=== PATIENT | female | born 1980 | race Two or more races ===

== ENCOUNTER 2024-04-26 03:40 | Emergency (ER) | payer BC, MEDICAID, SELFPAY ==
[2024-04-26 03:40] VITALS: BMI 36.9
[2024-04-26 03:47] VITALS: BP 135/88; PULSE 60; RESP 18; TEMP 36.7; O2SAT 98
--- NOTE | 2024-04-26 04:05 | XR_ITS ---
Examination: Duplex scan of the lower extremity, unilateral left Date and time of exam: 05/27/2024 0536 hrs. Indications: Left leg pain beginning 3 days ago worse the last 2 days Technique: Duplex scan of the extremity veins using B-mode/grayscale imaging and Doppler spectral analysis and color flow Attention is directed to internal echogenicity, compression and augmentation involving these veins, color flow assessment, spectral analysis Findings: Major deep venous structures in the extremity demonstrate normal course and caliber. There is no evidence of deep vein thrombosis. Normal color flow and spectral analysis Impression: Negative for DVT..
[2024-04-26] MEDS: DIAZEPAM 5 MG TABLET PO (04:08)
[2024-04-26] MEDS: KETOROLAC INJ 60 MG/2 ML VIAL IM (04:08)
--- NOTE | 2024-04-26 05:37 | PD.EDRME ---
Rapid Medical Screening Exam [facility] Arrival date/time: 04/26/24 03:40 43F with history of DVT and chronic back pain presents to ED with 2 days of lower back pain w/o fall/trauma. Patient states she's been having back pain since last year when she picked up something heavy at work. Yesterday, she felt like she pulled a muscle and has worsening pain since then. Patient denies dysuria/hematuria, paresthesia, bowel/bladder incontinence, and fevers/chills. Patient had MRI of lower back recently that showed some disc bulging and nerve pinching. Separately, patient also noticed her LLE was swollen and painful yesterday. Patient would like US to r/o DVT. She denies URI symptoms and SOB. Patient is no longer on anticoags. Chief Complaint: Back Pain/Injury Time Seen by Provider: 04/26/24 04:00 Vital signs: Vital Signs Temperature 98.0 F 04/26/24 03:47 Pulse Rate 60 04/26/24 03:47 Respiratory Rate 18 04/26/24 03:47 Blood Pressure 135/88 H 04/26/24 03:47 Pulse Oximetry (%) 98 04/26/24 03:47 Oxygen Delivery Method Room Air 04/26/24 03:47
--- NOTE | 2024-04-26 05:48 | PC.NURSE ---
PT IN ULTRASOUND AT THIS TIME.
--- NOTE | 2024-04-26 06:26 | PRELIM_ITS ---
Left lower extremity venous Doppler ultrasound. April 26, 2024 0536 hours Clinical history: r/o DVT; history of DVT; no on blood thinners Technique: Duplex scan of the left lower extremity deep venous systems was performed utilizing 2D grayscale imaging, Doppler spectral analysis and color flow Doppler and with compression. Comparison:No prior study is available for comparison. Findings: Carlos scale, color flow and spectral Doppler evaluation of the left lower extremity deep veins was performed. The common femoral, superficial femoral and popliteal veins are patent and compressible. Normal respiratory variation is noted. There is no evidence of occlusive or nonocclusive thrombus. The great saphenous vein is patent and compressible at the level of the saphenofemoral junction. Impression: No sonographic evidence of deep venous thrombosis in the left lower extremity. Report Electronically Signed By: Kashmir Santos 04/26/2024 6:24:42 AM [EST]
[2024-04-26] MEDS: HYDROcodone/APAP 5/325 TABLET 2 TAB PO (06:55)
--- NOTE | 2024-04-26 12:30 | EDNOTE_ITS ---
ED Back Injury Pain RME/HPI General Chief Complaint: Back Pain/Injury Stated Complaint: LOWER BACK PAIN Time Seen by Provider: 04/26/24 04:00 Arrival date/time: 04/26/24 03:40 RME / HPI RME / HPI Narrative: 04/26/24 03:40 43F with history of DVT and chronic back pain presents to ED with 2 days of lower back pain w/o fall/trauma. Patient states she's been having back pain since last year when she picked up something heavy at work. Yesterday, she felt like she pulled a muscle and has worsening pain since then. Patient denies dysuria/hematuria, paresthesia, bowel/bladder incontinence, and fevers/chills. Patient had MRI of lower back recently that showed some disc bulging and nerve pinching. Separately, patient also noticed her LLE was swollen and painful yesterday. Patient would like US to r/o DVT. She denies URI symptoms and SOB. Patient is no longer on anticoags. DR. MURRAY MAIN ED EVALUATION: 43 year old female with past medical history significant for DVT and chronic back pain presents to the Emergency Department with complaint of lower back pain onset 2 days. Patient denies any fall, injury, or loss of consciousness. She does report she picked up something heavy at work and since had back pain, like she pulled a muscle. Denies dysuria, paresthesia, bowel/bladder incontinence. No fevers, chills, or other symptoms at this time. Related Data Home Medications ?Medication ?Instructions ?Recorded ?Confirmed prenat.vits,ghassan,fbd-xcyv-bpois 1 tab PO QDAY 05/04/17 05/06/19 ( Vitamin tablet) medroxyprogesterone 10 mg tablet 10 mg PO QDAY 0 05/06/19 Previous Rx's ?Medication ?Instructions ?Recorded albuterol sulfate 90 mcg/actuation 2 inh inhalation Q4 H PRN shortness 05/06/19 aerosol inhaler of breath or wheezing #8.5 g rakesh azithromycin 250 mg tablet See Rx Instructions PO .COM PLEX #6 05/06/19 (Zithromax Z-Frank) tabs hydrocodone 5 mg-acetaminophen 325 1 tab PO BID PRN pa in #15 tabs 08/01/19 mg tablet ([place]) naproxen 500 mg tablet (Naprosyn) 500 mg PO BID #30 ta bs 08/01/19 diphenoxylate-atropine 2.5 2 tab PO QID PRN diarrhea # 20 tabs 04/19/23 mg-0.025 mg tablet (Lomotil) ondansetron 4 mg disintegrating 4 mg PO Q8H PRN nausea and 04/19/23 tablet vomiting #15 tabs cyclobenzaprine 10 mg tablet 10 mg PO BID PRN muscle s pasm #14 08/18/23 tabs hydrocodone 5 mg-acetaminophen 325 1 tab PO Q8H PRN pa in #14 tabs 08/18/23 mg tablet ibuprofen 800 mg tablet 800 mg PO Q8H PRN pain #30 t abs 08/18/23 hydrocodone 5 mg-acetaminophen 325 1 tab PO Q6H PRN pa in #20 tabs 04/26/24 mg tablet Allergies Allergy/AdvReac Type Severity Reaction Status Date / Time Pork/Porcine Containing Allergy Severe HIVES Verified 04/26/24 03:45 Products Review of Systems Review of Systems Systems Reviewed: All systems reviewed, normal except as documented Narrative Review of Systems: GEN: No fever, no chills, no weight loss EYES: No discharge, no visual changes, no pain HEENT: No ear pain, no congestion, no sore throat PULM: No shortness of breath, no cough, no congestion CV: No chest pain, no dyspnea on exertion, no palpitations GI: No nausea, no vomiting, no diarrhea, no pain, no constipation : No frequency, no urgency and no dysuria MUSC/SKEL: No joint pain, + lower back pain SKIN: No rash PSYCH: No hallucinations, no depression HEME/LYMPH: No easy bleeding or bruising tendencies NEURO: No weakness, no headache Past Medical History Past Medical History CARDIAC: Positive Cardiac Disorders, Cardiac Arrhythmia, Heart Murmur and Deep Vein Thrombosis REPRODUCTIVE: Positive Previous Pregnancies HEMATOLOGIC: Positive Clotting Problems Family History FAMILY HISTORY: Positive Family Cardiac Disorders Surgical History SURGICAL: Positive Cardiac Catheterization, Abdominal Surgery and Section Social History SMOKING STATUS: Never smoker SECOND HAND EXPOSURE: No SUBSTANCE USE: does not use ALCOHOL: Never ED Exam Narrative Physical exam: GENERAL APPEARANCE: alert and oriented x 4, well-developed, well-nourished, no acute distress VITALS: All vitals were reviewed and the pulse ox is 98% on room air, which is normal according to my interpretation. HEENT: Normocephalic, atraumatic; pupils equal, round, reactive to light; EOMI; mucous membranes pink, moist; oropharynx clear NECK: Supple LUNGS: CTABL; no wheezes, no rales, no rhonchi HEART: Regular rate, regular rhythm; normal S1, S2; no murmurs ABDOMEN: non distended; normal BS; soft, no tenderness, no guarding, no rebound; no masses, no organomegaly, no hernia BACK: no CVA tenderness EXTREMITIES: atraumatic; no edema NEUROLOGIC: awake; alert and oriented x4; cranial nerves II-XII grossly intact; no focal sensory or motor deficits PSYCHIATRIC: appropriate mood and affect SKIN: warm, dry, normal color; no rashes Course Quality Measures none Orders Category Date Time Status US venous doppler LE LT Stat Exams 04/26/24 04:05 Completed Diazepam [Valium] Med 04/26/24 04:00 Discontinued 5 mg PO X1 ONE HYDROcodone*/APAP 5/325 [Denton 5/325] Med 04/26/24 06:49 Discontinued 2 tab PO X1 ONE Ketorolac Inj [Toradol Inj] Med 04/26/24 04:00 Discontinued 60 mg IM X1 ONE Vital Signs Vital signs: Vital Signs Temperature 98.0 F 04/26/24 03:47 Pulse Rate 60 04/26/24 03:47 Respiratory Rate 18 04/26/24 03:47 Blood Pressure 135/88 H 04/26/24 03:47 Pulse Oximetry (%) 98 04/26/24 03:47 Oxygen Delivery Method Room Air 04/26/24 03:47 Back Pain / Injury MDM Narrative MDM Narrative:: IVerito am scribing for and in the presence of Dr. Murray. Patient data External records reviewed:: [facility] previous records (Reviewed last ED visit dated 08/18/23, discharged with the following: Strain of lumbar region) Clinical information provided by:: patient Social determinants that could affect healthcare access:: none Patient has the following chronic illnesses:: DVT and chronic back pain How is presenting disease/condition affected by chronic disease/condition?: exacerbated by Evaluation data The following diagnostics were reviewed and interpreted by me:: radiology exam(s) Lab and/or radiology exams considered but not ordered:: none Interpretation Summary: Procedure(s): US venous doppler LE LT Accession Number(s): [id number] cc: Jose Henao PA-C; Eyad Pelayo MD; Oscar Fofnaa PA-C~ Examination: Duplex scan of the lower extremity, unilateral left Date and time of exam: 05/27/2024 0536 hrs. Indications: Left leg pain beginning 3 days ago worse the last 2 days Technique: Duplex scan of the extremity veins using B-mode/grayscale imaging and Doppler spectral analysis and color flow Attention is directed to internal echogenicity, compression and augmentation involving these veins, color flow assessment, spectral analysis Findings: Major deep venous structures in the extremity demonstrate normal course and caliber. There is no evidence of deep vein thrombosis. Normal color flow and spectral analysis Impression: Negative for DVT.. Dictated By: Eyad Pelayo MD Medications / Prescriptions Medications or Prescriptions considered but not ordered:: none Medication administrations:: Medication Administration History Discontinued Medications Hydrocodone Bitart/Acetaminophen (Hydrocodone/Apap 5/325 Tablet) 2 tab PO X1 ONE Stop: 04/26/24 06:50 Last Admin: 04/26/24 06:55 Dose: 2 tab Documented By: CVL Diazepam (Diazepam 5 Mg Tablet) 5 mg PO X1 ONE Stop: 04/26/24 04:01 Last Admin: 04/26/24 04:08 Dose: 5 mg Documented By: CB Ketorolac Tromethamine (Ketorolac Inj 60 Mg/2 Ml Vial) 60 mg IM X1 ONE Stop: 04/26/24 04:01 Last Admin: 04/26/24 04:08 Dose: 60 mg Documented By: MARCIA see above Consultations Consultation(s) initiated? (list below): No Diagnosis Differential diagnosis back pain/injury: lumbar radiculopathy, sciatica, strain of lumbar region and discitis Most likely diagnosis given after review of the tests above:: Back pain Radiculopathy due to disorder of intervertebral disc of lumbar spine Admission Indicated Admission indicated?: not indicated Admission Request Was there a request for admission?: No Disposition Plan Disposition Plan: Discharge Discharge Attestation Discharge Attestation: The patient and all family members were given an opportunity to ask questions and understood the discharge instructions. Discharge instructions specifically effects, indications for sooner follow up or return to the emergency department, and the expected course of current diagnosis. Patient condition: Stable Discharge Plan Plan Patient Disposition: HOME (Self Care) Prescriptions/Referrals Prescriptions/Med Rec: New hydrocodone-acetaminophen 5-325 mg tablet 1 tab PO Q6H MDD 6 PRN (Reason: pain) Qty: 20 0RF No Action Vitamin Tablet 1 tab PO QDAY medroxyprogesterone 10 mg Tablet 10 mg PO QDAY albuterol sulfate 90 mcg/actuation HFA aerosol inhaler 2 inh IH Q4H PRN (Reason: shortness of breath or wheezing) Qty: 8.5 0RF azithromycin [Zithromax Z-Frank] 250 mg tablet See Rx Instructions .ROUTE .COMPLEX Qty: 6 0RF Rx Instructions: take 500 mg today (day 1), then 250 mg for 4 days (days 2-5) hydrocodone-acetaminophen [[place]] 5-325 mg tablet 1 tab PO BID MDD 2 PRN (Reason: pain) Qty: 15 0RF naproxen [Naprosyn] 500 mg tablet 500 mg PO BID Qty: 30 0RF diphenoxylate-atropine [Lomotil] 2.5-0.025 mg tablet 2 tab PO QID PRN (Reason: diarrhea) Qty: 20 0RF ondansetron 4 mg tablet,disintegrating 4 mg PO Q8H PRN (Reason: nausea and vomiting) Qty: 15 0RF cyclobenzaprine 10 mg tablet 10 mg PO BID PRN (Reason: muscle spasm) Qty: 14 0RF ibuprofen 800 mg tablet 800 mg PO Q8H PRN (Reason: pain) Qty: 30 0RF hydrocodone-acetaminophen 5-325 mg tablet 1 tab PO Q8H MDD 3 PRN (Reason: pain) Qty: 14 0RF Problem List Clinical Impression: Back pain, Radiculopathy due to disorder of intervertebral disc of lumbar spine Patient/Caregiver Discharge Instructions Education Materials: Self-Care for Low Back Pain Print Language: Malian Stand Alone Forms: Work/School Release
== END 2024-04-26 07:13 | disposition home or self-care (01) ==
PROVIDERS: Emergency Provider Emergency Medicine; PCP Physician Assistant
DX: M51.16 Intervertebral disc disorders with radiculopathy, lumbar region (principal); M79.662 Pain in left lower leg
CPT/HCPCS: 93971; 96372; 99284; J1885; A9270